=== PATIENT | male | born 1950 | race Caucasian/White ===

== ENCOUNTER 2017-12-17 17:24 | Emergency (ER) | payer OTHER, BC ==
--- OUTSIDE RECORDS SUMMARY | 2017-12-17 17:25 | XMS REPORT | Clinical Summary ---
:1950 Author Organization [facility] Address [address] [place] [id number] Care Team Providers Name Role Phone Aurora Bhat MD Primary Care Provider Allergies Active Allergy Reactions Severity Noted Date Comments Penicillin Hives 12/27/2015 Tetracycline Rash Low 12/27/2015 Current Medications Prescription Sig. Disp. Refills Start Date End Date Status fluocinonide (LIDEX) APPLY TO 0 01/23/2016 Active 0.05 % ointment AFFECTED AREA 3 TIMES A DAY fluticasone-salmeter Inhale 1 puff 3 each 3 11/22/2016 Active ol (ADVAIR) 250-50 2 (two) times mcg/dose a day. DISKUSIndications: RAD (reactive airway disease), mild intermittent, uncomplicated albuterol (PROAIR Inhale 2 puffs 3 Inhaler 3 11/22/2016 Active HFA,PROVENTIL every 4 (four) HFA,VENTOLIN HFA) 90 hours as mcg/actuation needed for inhalerIndications: wheezing. RAD (reactive airway disease), mild intermittent, uncomplicated albuterol sulfate 90 1-2 puffs inh 1 each 11 09/12/2017 Active mcg/actuation q4hr prn aerosol powdr breath asthma activatedIndications : RAD (reactive airway disease), mild intermittent, uncomplicated ergocalciferol Take 1 capsule 12 capsule 3 09/30/2017 Active (VITAMIN D2) 50,000 (50,000 Units 9 unit total) by capsuleIndications: mouth once a Vitamin D deficiency week. escitalopram TAKE 1 TABLET 90 tablet 0 10/12/2017 Active (LEXAPRO) 20 MG DAILY tablet levothyroxine TAKE ONE AND 135 tablet 3 11/30/2017 Active (SYNTHROID, LEVOXYL) ONE-HALF 25 mcg TABLETS DAILY tabletIndications: EVERY MORNING Subclinical hypothyroidism finasteride TAKE 1 TABLET 90 tablet 1 11/30/2017 Active (PROSCAR) 5 mg DAILY tabletIndications: Benign prostatic hyperplasia pravastatin TAKE 1 TABLET 90 tablet 1 11/30/2017 Active (PRAVACHOL) 40 MG DAILY tablet pravastatin TAKE 1 TABLET 90 tablet 0 10/22/2016 Discontinued (PRAVACHOL) 40 MG DAILY 7 tablet escitalopram TAKE 1 TABLET 90 tablet 0 10/22/2016 Discontinued (LEXAPRO) 20 MG DAILY 7 tablet ergocalciferol Take 1 capsule 12 capsule 3 11/22/2016 Discontinued (VITAMIN D2) 50,000 (50,000 Units 7 unit total) by capsuleIndications: mouth once a Vitamin D deficiency week. levothyroxine TAKE ONE AND 135 tablet 3 11/22/2016 Discontinued (SYNTHROID, LEVOXYL) ONE-HALF 8 25 mcg TABLETS DAILY tabletIndications: EVERY MORNING Subclinical hypothyroidism finasteride TAKE 1 TABLET 90 tablet 1 12/15/2016 Discontinued (PROSCAR) 5 mg DAILY 7 tablet ergocalciferol Take 1 capsule 12 capsule 3 12/17/2016 Discontinued (VITAMIN D2) 50,000 (50,000 Units 8 unit total) by capsuleIndications: mouth once a Vitamin D deficiency week. escitalopram TAKE 1 TABLET 90 tablet 0 02/06/2017 Discontinued (LEXAPRO) 20 MG DAILY 7 tablet pravastatin TAKE 1 TABLET 90 tablet 0 02/06/2017 Discontinued (PRAVACHOL) 40 MG DAILY 7 tablet escitalopram TAKE 1 TABLET 90 tablet 0 04/21/2017 Discontinued (LEXAPRO) 20 MG DAILY 8 tablet finasteride Take 1 tablet 90 tablet 1 04/22/2017 Discontinued (PROSCAR) 5 mg (5 mg total) 8 tabletIndications: by mouth Benign prostatic daily. hyperplasia, presence of lower urinary tract symptoms unspecified, unspecified morphology pravastatin TAKE 1 TABLET 90 tablet 1 04/28/2017 Discontinued (PRAVACHOL) 40 MG DAILY 8 tablet Active Problems Problem Noted Date Vitamin D deficiency 10/31/2016 Secondary hyperparathyroidism 10/31/2016 Benign prostatic hyperplasia 12/27/2015 Mixed hyperlipidemia 12/27/2015 Subclinical hypothyroidism 12/27/2015 Encounters Date Type Specialty Care Team Description 11/29/2017 Refill Family Medicine Aurora Bhat Subclinical hypothyroidism; MD Gregorio Benign prostatic hyperplasia 10/12/2017 Refill Family Medicine Aurora Bhat MD 09/30/2017 Orders Only Family Medicine Aurora Bhat Vitamin D anival Perkins MD 09/13/2017 Orders Only Internal Medicine ProviderAron MD 09/12/2017 Lab Lab Aurora Bhat MD 09/12/2017 Office Visit Internal Medicine Aurora Bhat Elevated BP without diagnosis of hypertension (Primary Dx); MD Gregorio RAD (reactive airway disease), mild intermittent, uncomplicated; Vitamin D deficiency 08/06/2017 Telephone Family Medicine Aurora Bhat MD 04/28/2017 Refill Internal Medicine Aurora Bhat MD 04/22/2017 Refill Family Medicine Narcisa Markham LVN Benign prostatic hyperplasia, presence of lower urinary tract symptoms unspecified, unspecified morphology (Primary Dx) 04/20/2017 Refill Internal Medicine Aurora Bhat MD 02/06/2017 Refill Internal Medicine Aurora Bhat MD 12/17/2016 Refill Internal Medicine Aurora Bhat D anival Perkins MD after 12/16/2016 Immunizations Name Dates Previously Given Next Due FLUZONE HIGH-DOSE PF 07/14/2016 Influenza Trivalent 08/10/2017, 06/20/2014 Pneumococcal Conjugate 11/24/2014 Family History Medical History Relation Name Comments Heart disease Father ACB late 50's; AMI age 70 Hypertension Father Diverticulitis Mother Rheum arthritis Mother dry skin Allergies Sister Relation Name Status Comments Father Mother Sister Social History Tobacco Use Types Packs/Day Years Used Date Never Smoker Smokeless Tobacco: Never Used Alcohol Use Drinks/Week oz/Week Comments No Sex Assigned at Date Recorded Not on file Last Filed Vital Signs Vital Sign Reading Time Taken Blood Pressure 146/87 09/12/2017 9:25 AM PLATFORM POWER TECHNICIAN Pulse 80 09/12/2017 9:25 AM PLATFORM POWER TECHNICIAN Temperature - - Respiratory Rate 16 09/12/2017 9:25 AM PLATFORM POWER TECHNICIAN Oxygen Saturation 96% 09/12/2017 9:25 AM PLATFORM POWER TECHNICIAN Inhaled Oxygen Concentration - - Weight 77.1 kg (170 lb) 09/12/2017 9:25 AM PLATFORM POWER TECHNICIAN Height 172.7 cm (5' 8") 09/12/2017 9:25 AM PLATFORM POWER TECHNICIAN Body Mass Index 25.85 09/12/2017 9:25 AM PLATFORM POWER TECHNICIAN Plan of Treatment Health Maintenance Due Date Last Done Comments COLONOSCOPY 2000 ZOSTER VACCINE 2010 PNEUMOCOCCAL-13 2015 INFLUENZA VACCINE 04/09/2018 08/10/2017, 07/14/2016, 06/20/2014 PNEUMOCOCCAL POLYSACCHARIDE VACCINE Completed 11/24/2014 AGE 65 AND OVER Results Miscellaneous Lab Result (09/13/2017) Specimen Performing Laboratory Blood Vitamin D 25 hydroxy level (09/12/2017 11:10 AM) Component Value Ref Range Vitamin D, 25-hydroxy 27 (L) 30 - 100 ng/mL Comment: Vitamin D Status 25-OH Vitamin D: Deficiency:<20 ng/mL Insufficiency: 20 - 29 ng/mL Optimal: > or=30 ng/mL For 25-OH Vitamin D testing on patients on D2-supplementation and patients for whom quantitation of D2 and D3 fractions is required, the QuestAssureD(TM) 25-OH VIT D, (D2,D3), LC/MS/MS is recommended: order code 25864 (patients >2yrs). For more information on this test, go to: http://education.OpenChime.Telkonet/faq/UQK995 (This link is being provided for informational/educational purposes only.) Specimen Performing Laboratory Blood [facility] after 12/16/2016 Insurance Payer Benefit Plan / Group Subscriber ID Type Phone Address MEDICARE MEDICARE PART A AND B xxxxxxxxxx Medicare [place], [place] BCBS BCBS CHOICE PPO/[employer]ER[employer] EMPL PPO xxxxxxxxxxxx PPO Home: Varsha Friend [phone] [address]
[2017-12-17] MEDS ORDERED: SMZ./TMP. 800/160 MG TABLET ONE (18:11)
[2017-12-17] MEDS ORDERED: TETANUS & DIPHTHERIA TOX,ADULT 0.5 ML VIAL ONE (18:11)
--- NOTE | 2017-12-17 18:45 | RAD REPORT ---
EXAM DESCRIPTION: RAD - Wrist Right 3 View - 12/17/2017 6:20 pm CLINICAL HISTORY: Trauma, wrist pain COMPARISON: None. FINDINGS: No fracture or dislocation seen. Soft tissue swelling is seen about the wrist. Calcifica tion of the TFCC is present.
--- NOTE | 2017-12-17 18:55 | EDPHYS ---
Physician Documentation [facility] Name: Asael Flores Jr Age: 67 yrs Sex: Male : 1950 Arrival Date: 12/17/2017 Time: 17:26 Bed 17 Private MD: Victor Hugo Kent HPI: 12/17 19:29 This 67 yrs old Male presents to ER via Ambulatory with complaints of Wrist snw Pain. 19:29 The patient or guardian reports swelling, tenderness. The complaints affect the right snw wrist diffusely. Context: The problem was sustained at home, resulted from a repetitive motion, yard work, also noted a possible insect bite. Onset: The symptoms/episode began/occurred gradually, 2 day(s) ago, and became persistent. Modifying factors: The symptoms are alleviated by holding still. Associated signs and symptoms: The patient has no apparent associated signs or symptoms. Compartment Syndrome negative for numbness, tingling. The patient has not experienced similar symptoms in the past. It is unknown whether or not the patient has recently seen a physician. Historical: - Allergies: 17:31 PENICILLINS; tw2 17:31 TETRACYCLINES; tw2 - Home Meds: 17:31 Advair Diskus Inhl [Active]; finasteride Oral [Active]; levothyroxine 137 mcg tab 1 tab tw2 once daily [Active]; Lexapro 20 mg Oral tab 1 tab once daily [Active]; pravastatin Oral [Active]; albuterol sulfate 1.25 mg/3 mL Inhl nebu 3 mL 3 times per day [Active]; - PMHx: 17:31 Asthma; enlarged prostate; Hyperlipidemia; Hypothyroidism; Depression; tw2 - PSHx: 17:31 Laser sx for prostate; Kidney stone removed; tw2 - Immunization history:: Adult Immunizations up to date, Last tetanus immunization: unknown. - Social history:: Smoking status: Patient/guardian denies using tobacco. ROS: 19:29 Constitutional: Negative for fever, chills, and weight loss, Eyes: Negative for injury, snw pain, redness, and discharge, ENT: Negative for injury, pain, and discharge, Neck: Negative for injury, pain, and swelling, Cardiovascular: Negative for chest pain, palpitations, and edema, Respiratory: Negative for shortness of breath, cough, wheezing, and pleuritic chest pain, Abdomen/GI: Negative for abdominal pain, nausea, vomiting, diarrhea, and constipation, Back: Negative for injury and pain, : Negative for injury, bleeding, discharge, and swelling, Skin: Negative for injury, rash, and discoloration, Neuro: Negative for headache, weakness, numbness, tingling, and seizure. 19:29 MS/extremity: Positive for injury or acute deformity, swelling, tenderness, of the right wrist. Exam: 19:26 Constitutional: This is a well developed, well nourished patient who is awake, alert, snw and in no acute distress. Head/Face: Normocephalic, atraumatic. Eyes: Pupils equal round and reactive to light, extra-ocular motions intact. Lids and lashes normal. Conjunctiva and sclera are non-icteric and not injected. Cornea within normal limits. Periorbital areas with no swelling, redness, or edema. ENT: Nares patent. No nasal discharge, no septal abnormalities noted. Tympanic membranes are normal and external auditory canals are clear. Oropharynx with no redness, swelling, or masses, exudates, or evidence of obstruction, uvula midline. Mucous membranes moist. Neck: Trachea midline, no thyromegaly or masses palpated, and no cervical lymphadenopathy. Supple, full range of motion without nuchal rigidity, or vertebral point tenderness. No Meningismus. Chest/axilla: Normal chest wall appearance and motion. Nontender with no deformity. No lesions are appreciated. Cardiovascular: Regular rate and rhythm with a normal S1 and S2. No gallops, murmurs, or rubs. Normal PMI, no JVD. No pulse deficits. Respiratory: Lungs have equal breath sounds bilaterally, clear to auscultation and percussion. No rales, rhonchi or wheezes noted. No increased work of breathing, no retractions or nasal flaring. Abdomen/GI: Soft, non-tender, with normal bowel sounds. No distension or tympany. No guarding or rebound. No evidence of tenderness throughout. Back: No spinal tenderness. No costovertebral tenderness. Full range of motion. Neuro: Awake and alert, GCS 15, oriented to person, place, time, and situation. Cranial nerves II-XII grossly intact. Motor strength 5/5 in all extremities. Sensory grossly intact. Cerebellar exam normal. Normal gait. 19:26 Skin: Appearance: normal except for affected area, injury, area to right wrist and hand with one potential insect bite to volar aspect of wrist, right wrist with edema. Erythema noted to right dorsal hand. Pt using steroid cream x 2 days. . Vital Signs: 17:28 BP 137 / 89; Pulse 72; Resp 18; Temp 98.2(O); Pulse Ox 97% on R/A; Weight 72.57 kg (R); tw2 Height 5 ft. 8 in. (172.72 cm) (R); Pain 5/10; 19:50 BP 140 / 70; Pulse 60; Resp 18; Pulse Ox 100% on R/A; Pain 2/10; ea 17:28 Body Mass Index 24.33 (72.57 kg, 172.72 cm) tw2 MDM: 17:33 Patient medically screened. snw 19:28 Data reviewed: vital signs, nurses notes. Data interpreted: Pulse oximetry: on room air snw is 97 %. Interpretation: normal. Counseling: I had a detailed discussion with the patient and/or guardian regarding: the historical points, exam findings, and any diagnostic results supporting the discharge/admit diagnosis, the presence of at least one elevated blood pressure reading (>120/80) during this emergency department visit, radiology results, the need for outpatient follow up, for definitive care, to return to the emergency department if symptoms worsen or persist or if there are any questions or concerns that arise at home. Special discussion: I have referred the patient to see his PCP for further evaluation of high blood pressure. Based on the history and exam findings, there is no indication for further emergent testing or inpatient evaluation. I discussed with the patient/guardian the need to see the primary care provider for further evaluation of the symptoms. 12/17 17:51 Order name: Wrist Right 3 View XRAY; Complete Time: 18:57 snw 12/17 18:54 Order name: Wrist Splint; Complete Time: 19:42 snw Administered Medications: 18:10 Drug: Tetanus-Diphtheria Toxoid Adult 0.5 ml {Roll Forming Supervisor: [employer]. Exp: ch 04/10/2020. Lot #: [id number]. } Route: IM; Site: right deltoid; 19:30 Follow up: Response: No adverse reaction ea 18:10 Drug: Bactrim (160 mg-800 mg (DS) 1 tablet Route: PO; 19:29 Follow up: Response: No adverse reaction ea 19:35 Drug: TORadol 60 mg Route: IM; Site: left gluteus; ea 19:50 Follow up: Response: No adverse reaction ea Disposition: 12/18 07:16 Co-signature as Attending Physician, Victor Hugo ROWE I agree with the assessment and [facility] plan of care. Disposition: 12/17/17 18:55 Discharged to Home. Impression: Pain in right wrist, Cellulitis, unspecified. - Condition is Stable. - Discharge Instructions: Elastic Bandage and RICE, Arthralgia, Cellulitis, Musculoskeletal Pain, Wrist Pain, Wrist Splint, Cryotherapy, Heat Therapy. - Prescriptions for Diclofenac Sodium 75 mg Oral Tablet Sustained Release - take 1 tablet by ORAL route 2 times per day; 30 tablet. Bactrim DS 800- 160 mg Oral Tablet - take 1 tablet by ORAL route every 12 hours for 10 days; 20 tablet. orphenadrine citrate 100 mg Oral Tablet Sustained Release - take 1 tablet by ORAL route 2 times per day As needed; 20 tablet. - Medication Reconciliation Form, Thank You Letter, Antibiotic Education, Prescription Opioid Use form. - Follow up: Emergency Department; When: As needed; Reason: Worsening of condition. Follow up: Private Physician; When: 2 - 3 days; Reason: If symptoms return, Recheck today's complaints, Continuance of care. Signatures: Dispatcher [employer]Host EDMargaret Roe, RN Victor Hugo Darby ch, MD MD cha Therrien, Shelly, MAJOR ACCOUNT REPRESENTATIVE-C MAJOR ACCOUNT REPRESENTATIVE-Ronaldow Maddie Lopez RN RN tw2 Paige Cardenas RN HORACIO delgado
--- NOTE | 2017-12-17 18:55 | ER ---
Nurse's Notes [facility] Name: Asael Flores Jr Age: 67 yrs Sex: Male : 1950 Arrival Date: 12/17/2017 Time: 17:26 Bed 17 Private MD: Diagnosis: Pain in right wrist;Cellulitis, unspecified Presentation: 12/17 17:28 Presenting complaint: Patient states: i have injured my right wrist, 2 weeks ago i over tw2 did it opening a can of beans and then i did yard work. Transition of care: patient was not received from another setting of care. Onset of symptoms was December 17, 2017. Care prior to arrival: None. 17:28 Method Of Arrival: Ambulatory tw2 17:28 Acuity: ALEXANDREA 4 tw2 Triage Assessment: 17:31 General: Appears in no apparent distress. well groomed, Behavior is calm, cooperative, tw2 appropriate for age. Pain: Complains of pain in right wrist. Historical: - Allergies: 17:31 PENICILLINS; tw2 17:31 TETRACYCLINES; tw2 - Home Meds: 17:31 Advair Diskus Inhl [Active]; finasteride Oral [Active]; levothyroxine 137 mcg tab 1 tab tw2 once daily [Active]; Lexapro 20 mg Oral tab 1 tab once daily [Active]; pravastatin Oral [Active]; albuterol sulfate 1.25 mg/3 mL Inhl nebu 3 mL 3 times per day [Active]; - PMHx: 17:31 Asthma; enlarged prostate; Hyperlipidemia; Hypothyroidism; Depression; tw2 - PSHx: 17:31 Laser sx for prostate; Kidney stone removed; tw2 - Immunization history:: Adult Immunizations up to date, Last tetanus immunization: unknown. - Social history:: Smoking status: Patient/guardian denies using tobacco. Screenin:48 Abuse screen: Denies threats or abuse. Denies injuries from another. Nutritional ch screening: No deficits noted. Tuberculosis screening: No symptoms or risk factors identified. Fall Risk None identified. Assessment: 17:48 General: Appears in no apparent distress. comfortable, Behavior is calm, cooperative, ch appropriate for age. Pain: Complains of pain in right wrist Pain currently is 5 out of 10 on a pain scale. Pain began gradually. Neuro: No deficits noted. Respiratory: Airway is patent Respiratory effort is even, unlabored, Breath sounds are clear bilaterally. Derm: Skin is pink, warm \T\ dry. Musculoskeletal: Circulation, motion, and sensation intact. Capillary refill < 3 seconds, in bilateral fingers. toes. Range of motion: intact in all extremities, Swelling present in lateral aspect of right wrist, medial aspect of right wrist, dorsal aspect of right wrist and palmar aspect of right wrist pt c/o pain with movement. pt has one small puncture wound to palmar aspect of wrist. 18:09 Reassessment: Patient appears in no apparent distress at this time. No changes from previously documented assessment. Patient and/or family updated on plan of care and expected duration. Pain level reassessed. Patient is alert, oriented x 3, equal unlabored respirations, skin warm/dry/pink. x ray in room performing studies now. 18:44 Reassessment: Patient appears in no apparent distress at this time. No changes from previously documented assessment. Patient and/or family updated on plan of care and expected duration. Pain level reassessed. Patient is alert, oriented x 3, equal unlabored respirations, skin warm/dry/pink. 19:55 General: Appears in no apparent distress. Behavior is calm, cooperative, appropriate ea for age. Pain: Complains of pain in right hand. Neuro: No deficits noted. Cardiovascular: Patient's skin is warm and dry. Respiratory: Airway is patent Respiratory effort is even, unlabored, Respiratory pattern is regular, symmetrical. Derm: Skin is pink, warm \T\ dry. Musculoskeletal: Circulation, motion, and sensation intact. Vital Signs: 17:28 BP 137 / 89; Pulse 72; Resp 18; Temp 98.2(O); Pulse Ox 97% on R/A; Weight 72.57 kg (R); tw2 Height 5 ft. 8 in. (172.72 cm) (R); Pain 5/10; 19:50 BP 140 / 70; Pulse 60; Resp 18; Pulse Ox 100% on R/A; Pain 2/10; ea 17:28 Body Mass Index 24.33 (72.57 kg, 172.72 cm) tw2 ED Course: 17:26 Patient arrived in ED. as 17:29 Triage completed. tw2 17:32 Sanaz Austin FNP-C [facility]. snw 17:32 Victor Hugo Chin MD is Attending Physician. snw 17:38 Margaret Arndt, RN is Primary Nurse. ch 17:47 Arm band placed on left wrist. Patient placed in an exam room, on a stretcher. ch 17:48 No apparent distress. Resting quietly. ch 17:48 Patient has correct armband on for positive identification. Bed in low position. Call ch light in reach. Side rails up X 1. 17:48 No provider procedures requiring assistance completed. Patient did not have IV access ch during this emergency room visit. 18:19 X-ray completed. Portable x-ray completed in exam room. Patient tolerated procedure kc2 well. 18:20 Wrist Right 3 View XRAY In Process Unspecified. EDMS 19:15 Report given to paige. 19:25 Paige Cardenas RN is Primary Nurse. ea Administered Medications: 18:10 Drug: Tetanus-Diphtheria Toxoid Adult 0.5 ml {Customer Service Representative: [employer]. Exp: 04/10/2020. Lot #: [id number]. } Route: IM; Site: right deltoid; 19:30 Follow up: Response: No adverse reaction ea 18:10 Drug: Bactrim (160 mg-800 mg (DS) 1 tablet Route: PO; ch 19:29 Follow up: Response: No adverse reaction ea 19:35 Drug: TORadol 60 mg Route: IM; Site: left gluteus; ea 19:50 Follow up: Response: No adverse reaction ea Outcome: 18:55 Discharge ordered by . snw 19:55 Discharged to home ambulatory. ea 19:55 Condition: improved 19:55 Discharge instructions given to patient, Instructed on discharge instructions, follow up and referral plans. medication usage, Demonstrated understanding of instructions, follow-up care, medications, Prescriptions given X 3. 19:58 Patient left the ED. ea Signatures: Dispatcher Med[employer] EDMS Margaret Arndt, RN RN Sanaz Reyes, MIDDLE SCHOOL SCIENCE TEACHER-C MIDDLE SCHOOL SCIENCE TEACHER-CsnKimberli Baker Tara, RN RN 2 Dari Maldonado 2 Paige Cardenas RN RN danny Corrections: (The following items were deleted from the chart) 20:48 20:47 Patient left the ED. ea ea
[2017-12-17] MEDS ORDERED: KETOROLAC 30 MG/ML INJ ONE (19:27)
== END 2017-12-17 20:47 | disposition home or self-care (01) ==
LOC: ER 17:24
DX: L03.90 Cellulitis, unspecified (principal); Z88.0 Allergy status to penicillin; Z88.3 Allergy status to other anti-infective agents; E03.9 Hypothyroidism, unspecified; J45.909 Unspecified asthma, uncomplicated; F32.9 Major depressive disorder, single episode, unspecified
CPT/HCPCS: 90714; 96372; 99283